=== PATIENT | female | born 1995 | race Caucasian/White ===

== ENCOUNTER → 2018-03-11 | Outpatient (CLI) | payer BC ==
[2018-03-13 14:12] LABS: HPV 16 Negative (Negative); HPV 18 Negative (Negative); HPV OTHER HR TYPES Negative (Negative)
== END | disposition home or self-care (01) ==
LOC: LAB SHORT 15:55 → LAB 15:55
PROVIDERS: Family Medicine
DX: Z01.411 Encounter for gynecological examination (general) (routine) with abnormal findings (principal); N76.0 Acute vaginitis
CPT/HCPCS: 87070; 87205; 87624; G0145

== ENCOUNTER 2019-01-08 19:57 | Inpatient (IN) | payer BC, OTHER ==
[~2019-01-08] VITALS: Ht 165.1 cm; Wt 100.0 kg
[2019-01-08 21:06] LABS: BASOPHILS ABSOLUTE AUTO 0.03 K/mm3 (0.00-0.23); BASOPHILS PERCENT AUTO 0 % (0-2); EOSINOPHILS ABSOLUTE AUTO 0.09 K/mm3 (0.00-0.68); EOSINOPHILS PERCENT AUTO 1 % (0-6); Hematocrit 38.5 % (33.0-51.0); Hemoglobin 12.8 g/dL (11.5-16.0); IMMATURE GRAN ABSOLUTE AUTO 0.08 K/mm3 (0.00-0.10); IMMATURE GRAN PERCENT AUTO 1 % (0-1); LYMPHOCYTES ABSOLUTE AUTO 2.75 K/mm3 (0.84-5.20); LYMPHOCYTES PERCENT AUTO 19 % (21-46); MONOCYTES ABSOLUTE AUTO 1.15 K/mm3 (0.16-1.47); MONOCYTES PERCENT AUTO 8 % (4-13); Mean Corpuscular HGB 33.4 pg (26.0-34.0); Mean Corpuscular HGB Conc 33.2 g/dL (31.5-36.5); Mean Corpuscular Volume 101 fL (80-100); Mean Platelet Volume 12.5 fL (9.1-12.4); NEUTROPHILS ABSOLUTE AUTO 10.15 K/mm3 (1.96-9.15); NEUTROPHILS PERCENT AUTO 71 % (41-73); Platelet Count 185 K/mm3 (150-400); RDW Standard Deviation 47.5 fL (35.1-46.3); Red Blood Cell Count 3.83 M/mm3 (3.80-5.20); White Blood Cell Count 14.25 K/mm3 (4.00-11.30)
[2019-01-08] MEDS ORDERED: PRENATAL VITAM1 EAC2 (21:18)
[2019-01-08] MEDS ORDERED: Vitamin D2000 UNIT PO (21:18)
--- NOTE | 2019-01-10 09:26 | NUR ---
01/10/19 0925 Amelie Cordova PT ENTERED OR WITH [employer]
[2019-01-10 09:57] LABS: PCO2 Cord - Arterial 52.9 mmHg (40-50); PO2 Cord - Arterial 14.5 mmHg (16-20); pH Cord - Arterial 7.27 (7.28-7.35)
[2019-01-10 09:58] LABS: PCO2 Cord - Venous 47.5 mmHg (40-50); PO2 Cord - Venous 22.2 mmHg (28-32); pH Umbilical Cord - Venous 7.32 (7.26-7.35)
--- NOTE | 2019-01-10 13:42 | NUR ---
CONSULT. BABY BF IN FIRST HOUR, CURRENTLY A FEW HOURS OLD. BOTH PARENTS ARE VERY TIRED. BABY IS CURRENTLY LATCHED AND SUCKLING WELL. ATTEMPTED TO WIDEN LATCH FURTHER AND BABY WAS RESISTANT, MOVING BREAST TISSUE WELL WITH SUCKLING AND MOM DENIES FEELING PAIN. INSTRUCT IN CHANGES TO EXPECT DURING THE FIRST WEEK WITH FEEDINGS AND WITH BABY AND REFERRED TO BF BROCHURE AND BF BOOK FOR PHOTOS AND INFORMATION. DENIES QUESTIONS AT PRESENT. LOVING WITH BABY.
--- NOTE | 2019-01-10 14:30 | NUR ---
Pt and SO would like to nap. No additional family in room at this time. Will take nb to desk until pt calls.
[2019-01-11 04:50] LABS: BASOPHILS ABSOLUTE AUTO 0.03 K/mm3 (0.00-0.23); BASOPHILS PERCENT AUTO 0 % (0-2); EOSINOPHILS ABSOLUTE AUTO 0.06 K/mm3 (0.00-0.68); EOSINOPHILS PERCENT AUTO 0 % (0-6); Hematocrit 37.4 % (33.0-51.0); Hemoglobin 12.4 g/dL (11.5-16.0); IMMATURE GRAN ABSOLUTE AUTO 0.14 K/mm3 (0.00-0.10); IMMATURE GRAN PERCENT AUTO 1 % (0-1); LYMPHOCYTES ABSOLUTE AUTO 1.99 K/mm3 (0.84-5.20); LYMPHOCYTES PERCENT AUTO 12 % (21-46); MONOCYTES ABSOLUTE AUTO 1.57 K/mm3 (0.16-1.47); MONOCYTES PERCENT AUTO 9 % (4-13); Mean Corpuscular HGB 32.6 pg (26.0-34.0); Mean Corpuscular HGB Conc 33.2 g/dL (31.5-36.5); NEUTROPHILS ABSOLUTE AUTO 13.42 K/mm3 (1.96-9.15); NEUTROPHILS PERCENT AUTO 78 % (41-73); Platelet Count 167 K/mm3 (150-400); RDW Coefficient Variation 13.1 % (11.7-14.2); RDW Standard Deviation 47.4 fL (35.1-46.3); White Blood Cell Count 17.21 K/mm3 (4.00-11.30)
[2019-01-11 04:51] LABS: Mean Corpuscular Volume 98 fL (80-100)
[2019-01-12] MEDS ORDERED: Percocet 5-3251 EACH PO (07:50)
[2019-01-12] MEDS ORDERED: IBUP800 PO (07:52)
--- NOTE | 2019-01-12 08:34 | NUR ---
MO IN BED, DOING WELL. PLAN FOR DC HOME TODAY. ORAL MEDS WORKIGN WELL FOR HER. FOB AT SIDE, SUPPORTIVE. HE HAS BEEN SICK. LOVING TO BABY.
--- NOTE | 2019-01-12 09:58 | NUR ---
ALL DC TEACHIGN DONE, BANDS MATCHED.
== END 2019-01-12 10:15 | disposition home or self-care (01) | DRG 788 ==
LOC: OBS 19:57 → BC 19:58 → OBS 20:05 → BC 20:07
PROVIDERS: Obstetrics & Gynecology; ADMIT Nurse Practitioner Obstetrics & Gynecology
PROC: 3E0P7VZ Introduction of Hormone into Female Reproductive, Via Natural or Artificial Opening (ICD-10-PCS; 2019-01-08)
PROC: 10907ZC Drainage of Amniotic Fluid, Therapeutic from Products of Conception, Via Natural or Artificial Opening (ICD-10-PCS; 2019-01-09)
PROC: 10H07YZ Insertion of Other Device into Products of Conception, Via Natural or Artificial Opening (ICD-10-PCS; 2019-01-09)
PROC: 3E0R3BZ Introduction of Anesthetic Agent into Spinal Canal, Percutaneous Approach (ICD-10-PCS; 2019-01-09)
PROC: 3E033VJ Introduction of Other Hormone into Peripheral Vein, Percutaneous Approach (ICD-10-PCS; 2019-01-09)
PROC: 10D00Z1 Extraction of Products of Conception, Low, Open Approach (ICD-10-PCS; principal; 2019-01-10 08:15)
DX: O24.420 Gestational diabetes mellitus in childbirth, diet controlled (principal); O62.1 Secondary uterine inertia; O61.0 Failed medical induction of labor; Z3A.39 39 weeks gestation of pregnancy; Z37.0 Single live birth
CPT/HCPCS: 36415; 51702; 82803; 82947; 85025; 86850; 86900; 86901; J0290; J0690; J1885; J2001; J2210; J2590; J2765; J3010; J7120

== ENCOUNTER → 2022-03-19 | Outpatient (CLI) | payer OTHER ==
[~2022-03-19] MED LIST: IBUP800 PO; PRENATAL VITAM1 EAC2; Percocet 5-3251 EACH PO; Vitamin D2000 UNIT PO
== END | disposition home or self-care (01) ==
LOC: LAB SHORT 11:57
DX: N61.0 Mastitis without abscess (principal)
CPT/HCPCS: 87070; 87075; 87205